=== PATIENT | female | born 1990 | race Two or more races ===

== ENCOUNTER 2016-04-23 10:55 | Observation (INO) | payer SELFPAY | END 2016-04-23 12:30 | disposition home or self-care (01) | DRG 782 | LOC: LDRP 10:55 | PROVIDERS: ADMIT Specialist; ATTEND Specialist | DX: O48.0 Post-term pregnancy (principal); Z3A.40 40 weeks gestation of pregnancy | CPT/HCPCS: 59025; 76818; 81002; G0378 ==

== ENCOUNTER 2016-04-25 12:00 | Observation (INO) | payer SELFPAY | END 2016-04-25 14:00 | disposition home or self-care (01) | DRG 782 | LOC: LDRP 12:00 | PROVIDERS: ADMIT Specialist; ATTEND Specialist | DX: O48.0 Post-term pregnancy (principal); Z3A.40 40 weeks gestation of pregnancy | CPT/HCPCS: 59025; 76818; 81002; G0378 ==

== ENCOUNTER 2016-04-27 11:11 | Observation (INO) | payer SELFPAY | END 2016-04-27 12:50 | disposition home or self-care (01) | DRG 782 | LOC: LDRP 11:11 | PROVIDERS: ADMIT Specialist; ATTEND Specialist | DX: O48.0 Post-term pregnancy (principal); Z3A.41 41 weeks gestation of pregnancy | CPT/HCPCS: 76818; G0378 ==

== ENCOUNTER 2016-04-28 09:55 | Observation (INO) | payer MEDICAID | END 2016-04-28 10:40 | disposition home or self-care (01) | DRG 566 | LOC: LDRP 09:55 | PROVIDERS: ADMIT Specialist; ATTEND Specialist | DX: O48.0 Post-term pregnancy (principal); Z3A.41 41 weeks gestation of pregnancy | CPT/HCPCS: 59025; 76818; 81002; G0378 ==

== ENCOUNTER 2016-04-30 19:56 | Inpatient (IN) | payer SELFPAY ==
[~2016-04-30] VITALS: Ht 167.6 cm; Wt 80.7 kg
[2016-04-30] MEDS ORDERED: LACT. RINGERS/OXYTOCIN 20UNITS 1,000 ML IV SCH (20:12)
[2016-04-30] MEDS ORDERED: LIDOCAINE 2%HCL (LOCAL ANESTH.) INJ 20ML MDV IJ ONE (20:15)
[2016-04-30] MEDS ORDERED: NALBUPHINE HCL 10 MG/1ml INJECTION IV PRN (20:15)
[2016-04-30] MEDS ORDERED: PHISODERM TOP SOLN 240ML BTL TOP PRN (20:15)
[2016-04-30] MEDS ORDERED: WITCH HAZEL-GLYCERIN PAD TOP PRN (20:15)
[2016-04-30] MEDS ORDERED: DERMOPLAST 60ML BOTTLE TOP PRN (20:15)
[2016-04-30] MEDS ORDERED: PROMETHAZINE HCL 25 MG/ML 1ML IV PRN (20:15)
[2016-04-30 20:46] LABS: Basophils # (auto) 0 uL; Basophils % (auto) 0.3 % (0.0-2.0); Eosinophils # (auto) 0 uL; Eosinophils % (auto) 0.5 % (0.0-7.0); Hematocrit 38.6 % (36.0-46.0); Lymphocytes # (auto) 1.1 uL; Lymphocytes % (auto) 10.6 % (10.0-50.0); Mean Corpuscular Hemoglobin 31.6 pg (28.0-32.0); Mean Corpuscular Hgb Conc. 33.5 g/dL (32.0-36.0); Mean Corpuscular Volume 94.2 fL (80.0-100.0); Mean Platelet Volume 12.1 fL (7.4-10.4); Monocytes # (auto) 0.7 uL; Monocytes % (auto) 7.1 % (0.0-12.0); Neutrophils # (auto) 8.2 uL; Neutrophils % (auto) 81.5 % (37.0-80.0); Platelet Count (auto) 153 10^3/uL (140-450); Red Cell Distribution Width 13.8 % (11.6-16.0); SUSPECT VIEW TRANSMISSION
[2016-04-30] MEDS: LACTATED RINGER'S 1,000 ML IV SCH (20:58)
[2016-04-30 21:00] LABS: INR 0.94 (0.9-1.15); Partial Thromboplastin Time 26.1 sec (22.64-33.71); Prothrombin Time 9.7 sec (9.37-12.3)
[2016-04-30] MEDS ORDERED: PENICILLIN G POT 5MIL/D5 50ML 50 ML IV ONE (21:00)
[2016-04-30 21:07] LABS: Albumin 2.5 g/dL (3.4-5.0); Calcium 8.1 mg/dL (8.5-10.1); Potassium 3.6 mmol/L (3.5-5.1)
[2016-04-30 21:10] LABS: Bilirubin, Total 0.6 mg/dL (0.2-1.0); Total Protein 6.3 g/dL (6.4-8.2)
[2016-04-30 21:11] LABS: Urine Bilirubin Negative (Negative); Urine Blood Negative /uL (Negative); Urine Color Yellow (Yellow); Urine Ketone TRACE (Negative); Urine Mucus FEW (None Seen); Urine Nitrite Negative (Negative); Urine RBC <1 /hpf (0 - 4); Urine Squamous Epithelial Cell FEW /hpf (<5); Urine Urobilinogen Normal (Negative); Urine pH 5.5 (5.0-8.0)
[2016-04-30 21:14] LABS: Urine Glucose 1+ mg/dL (Normal)
[2016-05-01] MEDS ORDERED: PENICILLIN G POTASSIUM 2,500,000 UNITS in D5W 5% 50 ML IV SCH (01:00)
[2016-05-01] MEDS: PENICILLIN G POTASSIUM 2,500,000 UNITS in D5W 5% 50 ML IV SCH ×6 (04:02→22:00)
[2016-05-01] MEDS: LACTATED RINGER'S 1,000 ML IV SCH ×3 (04:12→20:12)
[2016-05-01] MEDS ORDERED: LIDOCAINE 2%HCL (LOCAL ANESTH.) INJ 20ML MDV IJ PRN (04:15)
[2016-05-01] MEDS ORDERED: fentaNYL W ROPIVACAINE 150 ML EPI SCH ×2 (07:00→14:30)
[2016-05-01] MEDS ORDERED: ePHEDrine SULFATE 50 MG/ML AMP IV ONE ×2 (07:00→14:30)
[2016-05-01] MEDS ORDERED: NALOXONE HCL 0.4 MG/ML VIAL IV ONE ×2 (07:00→14:30)
[2016-05-01] MEDS ORDERED: fentaNYL CITRATE 100 MCG/2 ML VL IV ONE ×2 (07:00→14:30)
[2016-05-01] MEDS ORDERED: LIDOCAINE HCL 2 %PF INJ 10ML AMP IJ ONE (07:00)
[2016-05-01] MEDS ORDERED: SODIUM CHLORIDE 0.9% 500 ML IV PRN (14:26)
[2016-05-01] MEDS: METHYLERGONOVINE MALEATE 0.2 MG/ML AMP IM PRN ×2 (20:15→20:22)
[2016-05-01] MEDS ORDERED: LACT. RINGERS/OXYTOCIN 20UNITS 500 ML IV ONE (20:51)
[2016-05-01] MEDS ORDERED: IBUPROFEN 600 MG TAB PO PRN (21:00)
[2016-05-02] VITALS (8 sets, daily range): BP systolic 91–112; BP diastolic 50–80
[2016-05-02] MEDS: PENICILLIN G POTASSIUM 2,500,000 UNITS in D5W 5% 50 ML IV SCH (02:00)
[2016-05-02] MEDS: LACTATED RINGER'S 1,000 ML IV SCH ×2 (04:12→12:12)
[2016-05-03] VITALS: BP 110/58
[2016-05-03 04:12] VITALS: BP 105/54
[2016-05-03 06:55] VITALS: BP 96/52
[2016-05-03 12:10] VITALS: BP 101/50
== END 2016-05-03 12:00 | disposition home or self-care (01) | DRG 775 ==
LOC: LDRP 19:56
PROVIDERS: ADMIT Specialist; ATTEND Specialist
PROC: 10E0XZZ Delivery of Products of Conception, External Approach (ICD-10-PCS; principal; 2016-05-01)
PROC: 3E0S3CZ (ICD-10-PCS; 2016-05-01)
PROC: 00HU33Z Insertion of Infusion Device into Spinal Canal, Percutaneous Approach (ICD-10-PCS; 2016-05-01)
DX: O70.0 First degree perineal laceration during delivery (principal); Z3A.41 41 weeks gestation of pregnancy; Z37.0 Single live birth
CPT/HCPCS: 36415; 51702; 59025; 59409; 62282; 80053; 81001; 85025; 85610; 85730; 86850; 86900; 86901; 94760; 96365; 96366; 96372; 96375; G0434; J2540; J2590; J3010; J7060

== ENCOUNTER 2020-11-15 21:21 | Emergency (ER) | payer MEDICAID ==
[~2020-11-15] VITALS: Ht 167.6 cm; Wt 83.9 kg
[2020-11-15 21:45] VITALS: BP 115/72
[2020-11-15 23:50] LABS: Basophils # (auto) 0.1 10 ^3/uL (0-0.2); Eosinophils # (auto) 0.2 10 ^3/uL (0-0.8); Nucleated Red Blood Cells % 0.1 %
[2020-11-15 23:53] LABS: Eosinophils % (auto) 1.7 % (0.0-7.0); Hematocrit 43.2 % (36.0-46.0); Hemoglobin 14.7 g/dL (12.2-16.2); Lymphocytes # (auto) 2.5 10 ^3/uL (0.4-5.4); Lymphocytes % (auto) 23.5 % (10.0-50.0); Mean Corpuscular Hemoglobin 30.8 pg (28.0-32.0); Mean Corpuscular Hgb Conc. 34.2 g/dL (32.0-36.0); Mean Corpuscular Volume 90.2 fL (80.0-100.0); Monocytes # (auto) 0.9 10 ^3/uL (0-1.3); Monocytes % (auto) 8.2 % (0.0-12.0); Neutrophils % (auto) 65.6 % (37.0-80.0); Red Blood Cells 4.78 10^6/uL (4.0-5.20); Red Cell Distribution Width 13.2 % (11.8-14.3); White Blood Cell 10.6 10^3/uL (4.4-10.8)
[2020-11-15 23:58] LABS: BUN/Creatinine Ratio 15.5; Potassium 3.7 mmol/L (3.5-5.1)
[2020-11-15 23:59] LABS: Albumin 3.9 g/dL (3.4-5.0)
[2020-11-16 00:01] LABS: Bilirubin, Total 0.5 mg/dL (0.2-1.0); Total Protein 8.1 g/dL (6.4-8.2)
[2020-11-16 00:21] LABS: Urine Bacteria FEW /hpf (None Seen); Urine Blood Negative /uL (Negative); Urine WBC 2 /hpf (0 - 5)
== END 2020-11-16 02:09 | disposition left against medical advice (07) ==
LOC: ER 21:22
DX: R10.9 Unspecified abdominal pain (principal); R30.9 Painful micturition, unspecified; Z53.21 Procedure and treatment not carried out due to patient leaving prior to being seen by health care provider
CPT/HCPCS: 36415; 80053; 81001; 81025; 85025